=== PATIENT | male | born 1975 | race Caucasian/White ===

== ENCOUNTER → 2018-04-22 | Outpatient (CLI) | payer BC ==
--- NOTE | 2018-04-22 12:02 | CONS ---
CONSULTATION DATE OF SERVICE: 04/22/2018 A 42-year-old gentleman who has been evaluated in the sleep center for his multiple sleep problems. HISTORY OF PRESENT ILLNESS/SLEEP-WAKE EVALUATION: Patient usually goes to bed around 9 p.m. and at that time, he may fall asleep right away, but sometimes he is not falling asleep for about 1 or 1-1/2 hours. After falling asleep, patient sleeps until around 12:30 - 1 a.m. and then he wakes up and cannot sleep until 4 - 4:30 am. At that time, he is falling asleep again and sleeps until around 6 am. No history of snoring. Patient prefers to sleep on the belly position. He may see dreams only right after falling asleep. No history of sleep paralysis or cataplexy/during the day. Patient may take naps in the range of 3-5 p.m. he feels resumes refreshed after naps. No reviewed dreams during nap. Vandervoort Sleepiness Scale significantly increased to 14. Patient was tried on treatment with the Ambien about 10 years ago by the but it was not successful and the patient developed hallucinations on medication. PAST MEDICAL HISTORY: None. PAST SURGICAL HISTORY: None. MEDICATIONS: None. FAMILY HISTORY: This is sinus headache with new ooze from the sinuses problems and Zosyn. Past medical history put also in the patient sinus problems knowing. REVIEW OF SYSTEMS: Awakenings from sleep, sleepiness during the day episodes of irritability in the fullness with the no snoring since the echo here in our during. PHYSICAL EXAM: gentleman without distress, BP 122/79, HR 76, RR 16, height 5 feet 10 inches, weight 181.2 40 mass index 25.9, temperature 98.2. OROPHARYNX: Normal position of soft palate. Deep throat, very minimal restriction of nasal breathing. Neck is 15 inches in circumference. Neck Supple, no JVD. Thyroid is not palpable. LUNGS Clear to percussion and to auscultation. Good air exchange. No wheezing or rhonchi. HEART S1, S2 regular. No murmurs, gallops, or rubs. ABDOMEN Soft and nontender. Bowel sounds are present. No organomegaly appreciated. EXTREMITIES No clubbing or cyanosis. [employer]PER[employer] Awake, alert, and oriented X3. Cranial nerves 2 to 7 intact. There is no fasciculation or atrophy. noted. No focal deficits observed. IMPRESSION: 1. Multiple awakenings from sleep with difficulty to initiating sleep, sleepiness during the day. Patient dreams while falling asleep. Differential diagnosis include hypersomnia including narcolepsy. 2. Multiple awakenings from sleep, but normal position of soft palate. No history of snoring. Significant excessive daytime sleepiness. Vandervoort Sleepiness Scale is 14. Differential diagnosis should include obstructive sleep apnea-hypopnea syndrome, but again no objective findings. Normal size of the neck, no obesity. PLAN: 1. Polysomnogram with the following multiple sleep latency test for objective evaluation of patient breathing during the sleep and objective evaluation symptoms of excessive daytime sleepiness. \. 2. Sleep hygiene with regular time in bed for 7.5 hours. 3. Precautions related to driving. No driving if feeling sleepiness. 4. Stimulus control, paradoxical intention. 5. We will review patient's sleep diarrhea. Thank you very much for referring this patient for consultation. Sincerely, Rehan Harrington MD, PhD, FAASM Diplomat of [employer] [employer] Historian of [facility] MMODL / IJN: [id number] /
== END | disposition home or self-care (01) ==
LOC: SLEEP 10:21
PROVIDERS: ATTEND Internal Medicine
DX: G47.9 Sleep disorder, unspecified (principal); G47.10 Hypersomnia, unspecified
CPT/HCPCS: 99211